=== PATIENT | female | born 1950 | race Caucasian/White ===

== ENCOUNTER → 2016-08-17 | Day surgery (SDC) | payer MEDICARE, OTHER ==
[~2016-08-17] MED LIST: ALPRAZOLAM0.25 MG PO; AMLODIPINE BES2.5 MG PO; FLEXERIL10 MG PO; IRBESARTAN-HCT1 EAC1 PO; IRON325 ( 65 ) PO; LIDODERM30 EA TOP; LODINE PO; LYRICA PO; NEURONTIN300 MG PO; OXYCODON HCL-1 UDTA1 PO; OXYCODONE HCL10 MG PO; PHENERGAN25 M1 PO; VICODIN 5/500 T1 TAB PO; WOMEN'S DAILY1 EACH PO; ZOLPIDEM TARTRAT5 MG PO
--- NOTE | ~2016-08-17 | OR ---
Unit #: [id number] #: [id number] Patient: RICKI TIJERINA [id number] [address] [address] [id number] O MR#: [id number] NAME: RICKI TIJERINA ROOM: Date of Procedure: 08/17/2016 Admission Date: 08/17/2016 Surgeon: Bernardo Carrasco M.D. : 1950 Attending Physician: Bernardo Carrasco M.D. Primary Care Physician: Eugene Pack M.D. OPERATIVE REPORT PREOPERATIVE DIAGNOSES 1. Thoracic degenerative disk disease. 2. Cervical degenerative disk disease. 3. Back pain. 4. Thoracic radiculopathy. POSTOPERATIVE DIAGNOSES 1. Thoracic degenerative disk disease. 2. Cervical degenerative disk disease. 3. Back pain. 4. Thoracic radiculopathy. PROCEDURE PERFORMED Thoracic epidural steroid injection with intravenous sedation and fluoroscopic guidance for needle localization. INDICATIONS FOR PROCEDURE The patient is a 65-year-old female with upper thoracic spine disease causing back and thoracic radicular type discomfort. She was last treated with thoracic epidural steroid injections in 11/2015 and 12/2015. She did extremely well with 80% settling for about 10 weeks and had graduated slow return of the symptoms. Pain has back in same distribution. Plan is to repeat injection based on history, pathology, symptomatology, and treatment options. DESCRIPTION OF PROCEDURE The patient was placed in a seated position. Standard monitors were applied. 2 mg of Versed were given for sedation and anxiolysis, which were adequate. Vital signs remained stable. Sterile prep and drape then of the cervicothoracic area was performed. The skin to the right of midline then was localized with 1% lidocaine at the T3 level. An 18-gauge Hustead needle was then advanced via right paramedian approach and loss of resistance technique in toward the epidural space. After confirming proper positioning with fluoroscopy and radiographic contrast, a dose of 80 mg of Depo-Medrol and 4 mL of 0.125% bupivacaine were deposited. The patient tolerated the procedure otherwise well and was discharged to the recovery room in stable condition. Dictated by... Bernardo Carrasco M.D. Unit #: [id number] #: [id number] Patient: RICKI TIJERINA LHP/modl TD: 08/18/2016 00:55 JOB #: [id number] CC: Siena/kole Please Delete OPERATIVE REPORT Page 1 of 1 X Bernardo Carrasco MD X PROCEDURE OPERATIVE NOTE
== END | disposition home or self-care (01) ==
LOC: CCSC 09:02
DX: M51.14 Intervertebral disc disorders with radiculopathy, thoracic region (principal); M50.30 Other cervical disc degeneration, unspecified cervical region
CPT/HCPCS: J1040; J2250

== ENCOUNTER → 2016-08-24 | Day surgery (SDC) | payer MEDICARE, OTHER ==
--- NOTE | ~2016-08-24 | OR ---
Unit #: [id number] #: [id number] Patient: RICKI TIJERINA [id number] [address] [place], [place] [address] [id number] O MR#: [id number] NAME: RICKI TIJERINA ROOM: Date of Procedure: 08/24/2016 Admission Date: 08/24/2016 Surgeon: Bernardo Carrasco M.D. : 1950 Attending Physician: Bernardo Carrasco M.D. Referring Physician: Bernardo Carrasco M.D. Primary Care Physician: Eugene Pack M.D. OPERATIVE REPORT JOB NOTE: CC: [facility] PREOPERATIVE DIAGNOSES Thoracic disk disease, back pain, thoracic radiculopathy. POSTOPERATIVE DIAGNOSES Thoracic disk disease, back pain, thoracic radiculopathy. PROCEDURE PERFORMED Thoracic epidural steroid injection with intravenous sedation and fluoroscopic guidance for needle localization. INDICATIONS FOR PROCEDURE The patient is a 65-year-old female with return of upper thoracic interscapular pain. She has known significant degenerative disk disease in her upper thoracic spine. She was last treated about 10 months ago with epidural steroids in this area. She did very well for about 3 months. She had a gradual return of symptoms though they have been bad over the last 2 months. Repeat injection done last week, resulted in moderately good settling of all components of her pain. She is not back to the prior baseline, so we are going to proceed with a second injection now. DESCRIPTION OF PROCEDURE The patient was placed in a seated position. Standard monitors were applied. 2 mg of Versed were given for sedation and anxiolysis, which were adequate. Vital signs remained stable. Sterile prep and drape then of the lumbar area was performed. The skin then to the right of midline at the T3 level was localized with 1% lidocaine. An 18-gauge Heliospectratead needle was then advanced via right paramedian approach and loss of resistance technique in toward the epidural space. After confirming proper positioning with fluoroscopy and radiographic contrast, 80 mg of Depo-Medrol and 4 mL of 0.125% bupivacaine were deposited. The patient tolerated the procedure otherwise well and was discharged to the recovery room in stable condition. Dictated by... Bernardo Carrasco M.D. LHP/modl Unit #: [id number] #: [id number] Patient: RICKI TIJERINA TD: 08/25/2016 01:18 JOB #: [id number] OPERATIVE REPORT Page 1 of 1 X Bernardo Carrasco MD X PROCEDURE OPERATIVE NOTE
== END | disposition home or self-care (01) ==
LOC: CCSC 08:52
DX: M51.14 Intervertebral disc disorders with radiculopathy, thoracic region (principal); C18.9 Malignant neoplasm of colon, unspecified; M19.90 Unspecified osteoarthritis, unspecified site
CPT/HCPCS: J1040; J2250

== ENCOUNTER → 2016-08-31 | Day surgery (SDC) | payer MEDICARE, OTHER ==
--- NOTE | ~2016-08-31 | OR ---
Unit #: [id number] #: [id number] Patient: RICKI TIJERINA [id number] [address] [place], [place] [address] [id number] O MR#: [id number] NAME: RICKI TIJERINA ROOM: Date of Procedure: 08/31/2016 Admission Date: 08/31/2016 Surgeon: Bernardo Carrasco M.D. : 1950 Attending Physician: Bernardo Carrasco M.D. Referring Physician: Bernardo Carrasco M.D. Primary Care Physician: Eugene Pack M.D. OPERATIVE REPORT PREOPERATIVE DIAGNOSES 1. Thoracic degenerative disk disease. 2. Thoracic radiculopathy. 3. Back pain. POSTOPERATIVE DIAGNOSES 1. Thoracic degenerative disk disease. 2. Thoracic radiculopathy. 3. Back pain. PROCEDURE PERFORMED Thoracic epidural steroid injection with intravenous sedation and fluoroscopic guidance for needle localization. INDICATIONS FOR PROCEDURE The patient is a 65-year-old female with return of intrascapular and upper thoracic pain due to known upper thoracic degenerative disk disease. It is nonsurgical in nature. She did very well with epidural steroids getting excellent improvement for 8 to 10 months in the past. She had 2 injections done at this point over the last few weeks which additive significant improvement. She has not gotten back to the prior level of improvement that she apparently gets, so we are going to proceed with a final injection today. DESCRIPTION OF PROCEDURE The patient was placed in the seated position. Standard monitors were applied. 2 mg of Versed were given for sedation and anxiolysis, which were adequate. Vital signs remained stable. Sterile prep and drape then of the thoracic area was performed. The skin then just to the right of midline at the L3 level was localized with 1% lidocaine. An 18-gauge Move In Historytead needle was then advanced via right paramedian approach with loss resistance technique in toward the epidural space. The patient did not complain of pain or paresthesia during needle advancement. After confirming proper positioning with fluoroscopy and radiographic contrast, 80 mg of Depo-Medrol and 2 mL of 0.25% bupivacaine were deposited. The patient tolerated the procedure otherwise well and was discharged to the recovery room in stable condition. Dictated by... Bernardo Carrasco M.D. Unit #: [id number] #: [id number] Patient: RICKI TIJERINA LEANNE/kristen TD: 08/31/2016 10:08 JOB #: [id number] OPERATIVE REPORT Page 1 of 1 X Bernardo Carrasco MD X PROCEDURE OPERATIVE NOTE
== END | disposition home or self-care (01) ==
LOC: CCSC 08:59
DX: M51.14 Intervertebral disc disorders with radiculopathy, thoracic region (principal); M50.31 Other cervical disc degeneration, high cervical region; M19.90 Unspecified osteoarthritis, unspecified site; Z85.038 Personal history of other malignant neoplasm of large intestine
CPT/HCPCS: J1040; J2250

== ENCOUNTER → 2016-09-29 | Outpatient (CLI) | payer MEDICARE, OTHER ==
--- NOTE | ~2016-09-29 | US5 ---
[facility] A Service of [facility] RADIOLOGY TEXT RESULTS PATIENT: RICKI TIJERINA LOCATION: US : [birth year] UNIT #: [id number] AGE: [address]: JANINE ÁLVAREZ SEX: F ORDER DR: [id number] [facility] [address] [place], [place] [address] [id number] O MR#: [id number] Acc #: [id number] NAME: RICKI TIJERINA. : 1950 SEX: F STUDY DATE/TIME: 09/29/2016 11:14 UNIT: US ROOM: STUDY DESCRIPTION: US Abdominal Complete Attending Physician: Janine Álvarez Aprn Referring Physician: Janine Álvarez Aprn Ordering Physician: Staff Doctor Not On Primary Care Physician: Eugene Pack M.D. MEDICAL IMAGING REPORT This report is preliminary unless electronic signature is present EXAM Abdominal ultrasound complete 09/29/2016 HISTORY Hepatitis C for 4 years followup observation for hepatocellular carcinoma. Cholecystectomy. FINDINGS The liver demonstrates a somewhat coarsened echotexture. There is a 2.9 cm hepatic cyst. No solid mass lesions are identified. A second cyst within the liver measures 1.8 cm. The gallbladder is surgically absent as per patient history. The common duct measures 4 mm. The pancreas and spleen are normal. The spleen measures 9.7 cm in greatest diameter. The visualized portions of the abdominal aorta and inferior vena cava are within normal limits. Previously noted cyst on the left kidney is poorly visualized on today's examination. IMPRESSION 1. Coarsened liver echotexture. No solid mass lesions are identified within the liver. 2 hepatic cysts are again noted. 2. Surgical absence of the gallbladder. 3. Previously noted left renal cyst is poorly visualized on today's examination. Dictated by... Tho Tarango M.D. THIS IS AN ELECTRONICALLY VERIFIED REPORT Tho Tarango M.D. at 09/30/2016 8:03 AM MARY/rudolph TD: 09/29/2016 19:19 JOB #: [id number] [facility] A Service of [facility] RADIOLOGY TEXT RESULTS PATIENT: RICKI TIJERINA LOCATION: [facility] #: [id number] : [birth year] UNIT #: [id number] AGE: [address]: JANINE ÁLVAREZ SEX: F ORDER DR: MEDICAL IMAGING REPORT Page 1 of 1 COPY
== END | disposition home or self-care (01) ==
LOC: CGUS 10:30
DX: B18.2 Chronic viral hepatitis C (principal); N28.1 Cyst of kidney, acquired; K76.89 Other specified diseases of liver; Z90.49 Acquired absence of other specified parts of digestive tract
CPT/HCPCS: 76700